=== PATIENT | male | born 1950 | race Caucasian/White ===

== ENCOUNTER 2022-10-05 08:13 | Outpatient (OUT) | payer MEDICARE, SELFPAY ==
[2022-10-05 08:30] LABS: Estimated GFR (African America 53 (>=60); Estimated GFR (Non-African Ame 44 (>=60)
--- NOTE | 2022-10-05 09:10 | CT_ITS ---
[address] [address] Patient Name: GABINO LEUNG MRN: [id number] date: 1950 Sex: M Assigned Patient Location: LAB Current Patient Location: Accession/Order Number: [id number] Exam Date: 10/05/2022 09:10 Report Date: 10/06/2022 07:03 At the request of: EVANGELISTA MCGHEE Procedure: CT angio neck EXAM: CT angiogram of the neck using 100 mL of IV iodinated contrast. 3D images were generated on an independent workstation for better evaluation of the vasculature. NASCET criteria were used when evaluating the carotid arteries. Dose reduction technique used: Automated exposure control and/or adjustment of the mA and/or kV according to patient size and/or use of iterative reconstruction technique. REASON FOR EXAM: Bilateral artery stenosis I65.23 COMPARISON: None FINDINGS: Right carotid bifurcation plaque with moderate to severe stenosis at the origin of the right internal carotid artery with 60-70% stenosis. Left carotid bifurcation plaque with mild left internal carotid artery stenosis of 25% or less. Bilateral vertebral arteries are patent with mild stenosis at the right vertebral artery origin and intracranial segment. Bilateral common carotid arteries are patent without significant stenosis. Small bilateral pleural effusions. Interlobular septal thickening in the left lung. Numerous cutaneous nodules. Remainder unremarkable. IMPRESSION: 1. Moderate to severe right cervical ICA stenosis. 2. Small bilateral pleural effusions and probable pulmonary interstitial edema. Electronically authenticated by: TIMOTHY NIETO Date: 10/06/2022 07:03
== END 2022-10-05 08:14 | disposition home or self-care (01) ==
LOC: LAB 08:14
PROVIDERS: Visit Provider Nurse Practitioner Family
DX: I65.23 Occlusion and stenosis of bilateral carotid arteries (principal); Z01.812 Encounter for preprocedural laboratory examination; J90 Pleural effusion, not elsewhere classified
CPT/HCPCS: 36415; 70498; 82565; Q9966

== ENCOUNTER 2022-11-22 13:40 | Outpatient (OUT) | payer MEDICARE, SELFPAY ==
[2022-11-22 14:06] LABS: Basophils Absolute Auto 0.1 10^3/uL (0.0-0.1); Basophils Percent Auto 1.1 % (0.2-2.0); Eosinophils Absolute Auto 0.1 10^3/uL (0.0-0.7); Eosinophils Percent Auto 1.2 % (0.9-7.0); Hematocrit 41.3 % (42.0-54.0); Hemoglobin 13.9 g/dL (14.0-18.0); Immature Granulocytes Abs Auto 0.15 10^3/uL (0.00-0.03); Immature Granulocytes Pct Auto 1.8 % (0.0-0.5); Lymphocytes Absolute Auto 1.2 10^3/uL (1.2-3.8); Lymphocytes Percent Auto 14.8 % (20.5-60.0); Mean Corpuscular HGB Conc 33.7 g/dL (29.9-35.2); Mean Corpuscular Hemoglobin 30.1 pg (25.9-34.0); Mean Corpuscular Volume 89.4 fL (80.0-94.0); Mean Platelet Volume 10.8 fL (9.5-13.5); Monocytes Absolute Auto 0.7 10^3/uL (0.3-0.8); Neutrophils Percent Auto 72.1 % (43.0-75.0); Platelet Count 249 10^3/uL (150-450); Red Blood Count 4.62 10^6/uL (4.70-6.10); Red Cell Distribution Width 13.4 % (11.0-15.0); White Blood Count 8.3 10^3/uL (4.0-11.0)
[2022-11-23 13:31] LABS: Anion Gap 14.6; BUN Creatinine Ratio 19.6; Calcium 9.5 mg/dL (8.5-10.1); Carbon Dioxide 24.6 mmol/L (21.0-32.0); Chloride 106 mmol/L (98-107); Estimated GFR (African America 57 (>=60); Estimated GFR (Non-African Ame 47 (>=60); Glucose 79 mg/dL (74-106); Potassium 4.2 mmol/L (3.5-5.1); Sodium 141 mmol/L (136-145)
== END 2022-11-22 13:41 | disposition home or self-care (01) ==
LOC: LAB 13:41
PROVIDERS: Visit Provider Internal Medicine Interventional Cardiology
DX: R94.39 Abnormal result of other cardiovascular function study (principal)
CPT/HCPCS: 36415; 80048; 85025

== ENCOUNTER 2023-02-25 11:59 | Outpatient (OUT) | payer MEDICARE, SELFPAY ==
--- NOTE | 2023-02-25 12:22 | XR_ITS ---
The [address] [address] Patient Name: GABINO LEUNG MRN: [id number] date: 1950 Sex: M Assigned Patient Location: LAB Current Patient Location: Accession/Order Number: [id number] Exam Date: 02/25/2023 12:34 Report Date: 02/26/2023 08:14 At the request of: YUVAL FOREMAN Procedure: XR chest 1V EXAMINATION: XR chest 1V HISTORY: Dyspnea On Exertion R06.09 COMPARISON: XR chest 08/17/2022 FINDINGS: LUNGS: No significant pulmonary parenchymal abnormalities. VASCULATURE: No increased pulmonary vasculature. PLEURA: No pneumothorax, effusion, or pleural thickening. CARDIAC: No cardiomegaly or cardiac silhouette abnormality. MEDIASTINUM: No visible mass or adenopathy. BONES: No fracture or visible bone lesion. OTHER: Negative. XR/XR chest 1V IMPRESSION: 1. No acute cardiopulmonary process. 2. Hyperexpanded lungs suggestive of COPD. Electronically authenticated by: JEN YU Date: 02/26/2023 08:14
[2023-02-25 14:16] LABS: Alanine Aminotransferase 23 U/L (16-63); Albumin Globulin Ratio 1.1; Albumin Level 3.8 g/dL (3.4-5.0); Alkaline Phosphatase 73 U/L (46-116); Anion Gap 13.6; Aspartate Amino Transferase 14 U/L (15-37); BUN Creatinine Ratio 18.9; Bilirubin Total 0.5 mg/dL (0.2-1.0); Calcium 9.1 mg/dL (8.5-10.1); Carbon Dioxide 25.5 mmol/L (21.0-32.0); Chloride 104 mmol/L (98-107); Estimated GFR (African America 57 (>=60); Estimated GFR (Non-African Ame 47 (>=60); Globulin 3.5 g/dL; Glucose 122 mg/dL (74-106); Potassium 4.1 mmol/L (3.5-5.1); Sodium 139 mmol/L (136-145); Total Protein 7.3 g/dL (6.4-8.2)
== END 2023-02-25 12:00 | disposition home or self-care (01) ==
PROVIDERS: Visit Provider Nurse Practitioner Acute Care
DX: R06.09 Other forms of dyspnea (principal)
CPT/HCPCS: 36415; 71045; 80053; 83880